=== PATIENT | female | born 1955 | race American Indian/Alaskan Native ===

== ENCOUNTER 2017-05-11 09:18 | Outpatient (CLI) | payer BC ==
--- NOTE | 2017-05-11 16:56 | Vascular Lab Report ---
MESENTERIC ARTERIAL DUPLEX Reason for exam: Mesenteric artery insufficiency Comments: The aorta is patent. Flow velocities are within normal limits. Minimal atherosclerotic change is identified. No aneurysmal dilatation is noted. The celiac artery is patent. Flow velocities are normal. No evidence of obstruction is identified. The superior mesenteric artery is patent. Flow velocities are normal. No evidence of obstruction is identified. A caloric challenge was given. The patient did not complain of pain during the period of observation afterword. The superior mesenteric artery was interrogated for approximately 20 minutes after the meal. Appropriate changes in flow velocities were observed. Impression: This study does not support the diagnosis of mesenteric ischemia.
== END 2017-05-11 09:19 | disposition home or self-care (01) ==
LOC: VAS 09:18
PROVIDERS: ATTEND Surgery Vascular Surgery
DX: R10.10 Upper abdominal pain, unspecified (principal)
CPT/HCPCS: 93979

== ENCOUNTER 2017-07-20 07:03 | Day surgery (SDC) | payer BC ==
[2017-07-20] MEDS ORDERED: ECOTRIN PO ONE (07:36)
[2017-07-20 08:00] LABS: Basophils % (Auto) 2.1 % (0.0-1.8); Eosinophils % (Auto) 2.5 % (0.0-4.3); Hematocrit 36.5 % (30.3-42.9); Hemoglobin 11.6 gm/dl (10.1-14.3); Mean Corpuscular HGB Conc 32 % (30-34); Mean Corpuscular Hemoglobin 28 pg (28-32); Mean Corpuscular Volume 87 fl (79-97); Platelet Count 285 K/mm3 (140-440); Red Blood Count 4.18 M/mm3 (3.65-5.03); Red Cell Distribution Width 14.1 % (13.2-15.2); White Blood Count 4.5 K/mm3 (4.5-11.0)
[2017-07-20] MEDS ORDERED: NACL 0.9% 500 ML 500 ML IV SCH (08:00)
[2017-07-20 08:13] LABS: INR 0.96 (0.87-1.13)
[2017-07-20 08:18] LABS: Anion Gap 13 mmol/L; BUN/Creatinine Ratio 22; Blood Urea Nitrogen 20 mg/dL (7-17); Calcium 9.6 mg/dL (8.4-10.2); Carbon Dioxide 29 mmol/L (22-30); Chloride 103.8 mmol/L (98-107); Glucose 106 mg/dL (65-100); Potassium 3.9 mmol/L (3.6-5.0); Sodium 142 mmol/L (137-145)
[2017-07-20] MEDS ORDERED: HEPARIN/NS 5000 UNIT/500ML(CATH LAB) 1,000 ML IR ONE (09:26)
[2017-07-20] MEDS ORDERED: NITROGLYCERIN SYRINGE 3 ML ONE (09:27)
[2017-07-20] MEDS ORDERED: XYLOCAINE 2% INFILTRATI ONE (09:27)
[2017-07-20] MEDS ORDERED: CALAN ONE (09:27)
[2017-07-20] MEDS ORDERED: HEPARIN 10,000 UNITS/10 ML ONE (09:27)
[2017-07-20] MEDS ORDERED: VERSED ONE (09:28)
[2017-07-20] MEDS ORDERED: SUBLIMAZE ONE (09:28)
--- NOTE | 2017-07-20 10:30 | Cardiac Catherization Report ---
CARDIAC CATHETERIZATION REFERRING PHYSICIANS: 1. Jose Snow MD 2. Harshal Sharma MD INDICATION FOR PROCEDURE: The patient is a pleasant 62-year-old -British female with multiple risk factors, who presents with chest pain and abnormal stress test, referred for left heart catheterization. Risks, benefits, and alternatives discussed at length prior to obtaining informed consent. PROCEDURE IN DETAIL: The patient was brought to the bed laborer in a postabsorptive state, prepped and draped in sterile fashion. Dat's test in right hand was normal. A 2 mL of 2% lidocaine used to anesthetize the right wrist. A standard 6-Azeri hydrophilic sheath used to cannulate the right radial artery via modified Seldinger technique. All exchanges performed to exchange a J-tip guidewire. JL3.5 catheter used to engage the left main. No dampening or ventricularization. Cineangiography performed in multiple projections. JR4 catheter used to cross the aortic valve under fluoroscopic guidance. Left ventriculography performed in 30 CARRILLO and 30 LITTLE projections via hand injections, catheter flushed. Manual pullback performed with continuous pressure monitoring. Catheter used to engage the right coronary. No dampening or ventricularization. Cineangiography performed in all projections. Next, given recurrent chest pain and unremarkable coronaries, we proceeded with root aortography with a power injector in the LITTLE projection with a pigtail catheter. Catheter removed from the body of wire, sheath removed, manual pressure used to achieve hemostasis. DATA: Aortic pressure is 120/60, LV pressure is 120, LVEDP of 20 mmHg. Left ventriculography revealed normal left ventricular systolic performance, estimated ejection fraction of 55-60%. No evidence of aortic stenosis. CORONARY ANATOMY: This is a right dominant system. Right coronary is a moderate sized vessel, courses AV groove, distally bifurcates in the posterior descending and posterolateral branch. There are scattered luminal irregularities with a maximal narrowing of 20% in the mid right coronary. Left main without significant disease, bifurcates into left anterior descending and left circumflex. Left circumflex is a moderate sized vessel, courses AV groove. No significant disease. LAD is a moderate sized vessel, courses anterior intergroove, wraps around the apex, no significant disease identified. Root aortography reveals normal contour, normal great vessel anatomy, no evidence of a dissection or penetrating aortic ulcer, no evidence of aortic insufficiency. CONCLUSIONS: 1. Mild nonobstructive coronary artery disease with a 20% mid right coronary stenosis. 2. Right dominant system. 3. Normal left ventricular systolic performance, estimated ejection fraction of 55-60%. 4. Normal root aortography without evidence of dissection or penetrating aortic ulcer. Continue aggressive risk factor modification, diet and lifestyle modification. Follow up with Dr. Sharma in the office. Results of procedure explained in length to the patient and family. All questions and concerns were addressed. JOB# [id number] SBMadelyn/NTS
[2017-07-20 13:33] VITALS: BP 137/59
--- NOTE | 2017-07-20 14:56 | Short Stay Summary ---
Short Stay Documentation Date of service: 07/20/17 - History H&P: obtained from office - Allergies and Medications Current Medications: Allergies No Known Allergies Allergy (Verified 07/20/17 07:36) Home Medications Medication Instructions Recorded Confirmed Last Taken Type Metoprolol [Lopressor] 100 mg PO DAILY 07/20/17 07/20/17 07/19/17 History Triamter/Hctz 37.5-25 mg 1 tab PO QDAY 07/20/17 07/20/17 07/19/17 History [Maxzide-25] lamoTRIgine [lamoTRIgine ER] 25 mg PO BID 07/20/17 07/20/17 07/19/17 History - Brief post op/procedure progress note Date of procedure: 07/20/17 Pre-op diagnosis: abnormal stress test Post-op diagnosis: other (CAD) Procedure: [facility] - see cath report Anesthesia: local Estimated blood loss: none Condition: stable - Disposition Condition at discharge: Stable Disposition: DC-01 TO HOME OR SELFCARE - Discharge Diagnoses (1) CAD (coronary artery disease) Status: Chronic Qualifiers: Coronary Disease-Associated Artery/Lesion type: C [place] vs. transplanted heart: N Associated angina: A Short Stay Discharge Plan Activity: advance as tolerated Diet: low fat, low cholesterol, low salt Wound: open to air, keep clean and dry, per your surgeon's advice Additional Instructions: Make follow up appointment with in 7days [phone] Follow up with: ANGEL SOTO MD [Primary Care Provider] - 7 Days Forms: CardCath PCI D/C Instructions, Post Sedation D/C Instructions
== END 2017-07-20 14:25 | disposition home or self-care (01) ==
LOC: CATHLABREC 07:03
PROVIDERS: ATTEND Internal Medicine
DX: I25.10 Atherosclerotic heart disease of native coronary artery without angina pectoris (principal); Z79.01 Long term (current) use of anticoagulants
CPT/HCPCS: 36415; 80048; 85025; 85610; 85730; 93005; 93010; 93458; 93567; C1894; J1644; J2250; J3010; J7040; Q9967

== ENCOUNTER 2017-10-11 11:00 | Outpatient (CLI) | payer BC | END 2017-10-11 11:01 | disposition home or self-care (01) | LOC: SLR 11:00 | PROVIDERS: ATTEND Internal Medicine | DX: G47.30 Sleep apnea, unspecified (principal); E66.9 Obesity, unspecified; I10 Essential (primary) hypertension; I25.10 Atherosclerotic heart disease of native coronary artery without angina pectoris; Z87.891 Personal history of nicotine dependence | CPT/HCPCS: 95810 ==

== ENCOUNTER 2018-05-10 09:39 | Day surgery (SDC) | payer MEDICARE ==
[~2018-05-10 09:39] MED LIST: TETRACAINE 0.5% OS PRN
[2018-05-10] MEDS: VIGAMOX OS SCH ×3 (10:30→10:40)
[2018-05-10] MEDS: MYDRIACYL OS SCH ×3 (10:30→10:40)
[2018-05-10] MEDS: AK-Dilate OS SCH ×3 (10:30→10:40)
--- NOTE | 2018-05-10 10:41 | Anesthesia Consultation ---
Anesthesia Consult and Med Hx Date of service: 05/10/18 - Airway Anesthetic Teeth Evaluation: Partials ROM Head & Neck: Adequate Mental/Hyoid Distance: Adequate Mallampati Class: Class I Intubation Access Assessment: Good - Pulmonary Exam CTA: Yes - Pre-Operative Health Status ASA Pre-Surgery Classification: ASA3 Proposed Anesthetic Plan: Local, MAC - Pulmonary Hx Smoking: Yes (QUIT 1992) Hx Asthma: Yes ( A CHILD) Hx Sleep Apnea: Yes - Cardiovascular System Hx Hypertension: Yes (2005) Hx Coronary Artery Disease: Yes (takes isosorbide) Hx Heart Attack/AMI: No - Central Nervous System Hx Psychiatric Problems: No - Other Systems Hx Cancer: No
[2018-05-10] MEDS ORDERED: NACL BACTERIOSTATIC INFILTRATI ONE (10:52)
[2018-05-10] MEDS ORDERED: VERSED ONE (11:09)
[2018-05-10] MEDS ORDERED: DIAMOX PO ONE (12:14)
[2018-05-10] MEDS ORDERED: PRED FORTE 1% OS SCH (12:15)
[2018-05-10] MEDS ORDERED: PRED FORTE 1% ONE (12:21)
--- NOTE | 2018-05-10 13:10 | Operative Report ---
Operative Report Operative Report: PATIENT'S NAME: DATE OF : DATE OF SURGERY: 05/10/2008 PREOPERATIVE DIAGNOSIS: Cataract left eye POSTOPERATIVE DIAGNOSIS: Same OPERATIVE PROCEDURE: Phacoemulsification with intraocular lens implantation, left eye SURGEON: Thalia Diop M.D. ASSEMBLER [employer] SURGEON: Kuldeep Lens: [id number] 19.0 D ANESTHESIA: Monitored anesthesia care in combination with topical and intracameral anesthesia because of the established specific risk of reflux, arrhythmias, or anxiety attacks associated with ocular manipulation, as well as the difficulty of the cover stitch machine operator to manage such potentially catastrophic events while simultaneously attempting to complete the surgical procedure and was deemed necessary for the patient's safety to have an Disbursing Agent present during the procedure whenever possible. An Disbursing Agent was utilized to regulate the intravenous sedation of the patient so the patient was cooperative yet not asleep in order for the patient to successfully maintain fixation of the eye on the operating light of the microscope. COMPLICATIONS: No surgical complications No blood loss. ALLERGIES: N known drug allergies PROGNOSIS: Excellent INDICATIONS FOR SURGERY: The patient is undergoing surgery in the hopes of eliminating or improving these visual difficulties. PROCEDURE: After arriving at the surgery center, the patient was given topical anesthetic and dilating drops, as noted in the record. The patient was then taken into the operating room and given more anesthetic drops. The eyelids , lashes, and lid margins were scrubbed with Betadine solution, and the patient was draped. The Nurse Disbursing Agent administered IV sedation and monitored the patient during the procedure. The eye was then fixated with a 0.12, and a stab incision was made in the peripheral clear cornea into the anterior chamber. This was made on my left side. Viscoelastic was next used to fill the anterior chamber. The eye was once again fixated with the 0.12 forceps and a keratome was used make an incision in clear cornea peripherally on my right hand side temporally. The capsule forceps were used to open the central anterior capsule and then make a continuous round capsulotomy. Hydrodissection was carried out utilizing a cannula and balanced salt solution to delineate the cortical material from the capsule and the nucleus from the cortical material. The phaco tip was introduced into the eye and used to remove the anterior cortical material in the area of the capsulotomy. Then the phaco tip was buried into the nucleus, and a chopping instrument was introduced into the eye and used to provide countertraction in the nucleus between this instrument and the phaco tip fracturing the nucleus. This procedure was repeated multiple times, providing multiple small segments of the lens, and then the phaco tip was used to remove each of these segments. An I/A tip was then used to remove the remaining cortex. The anterior chamber was refilled with viscoelastic. An one-piece, acrylic intraocular lens was then placed into an inserting cartridge. The tip of the inserting cartridge was introduced into the keratome incision and into the anterior chamber. The implant was gently advanced through the cartridge and into the eye, where it unfolded, and both haptics were placed in the capsular bag, where it centered nicely and appeared to be well fixated. After placement of the intraocular lens, the I~and~A handpiece was placed back into the eye and used to remove the viscoelastic, including viscoelastic that was behind the optic of the intraocular lens. The anterior chamber was then filled with balanced salt solution, and hydration of the wound was used to cause swelling of the wound and more appropriate watertight closure. When the wound was found to be firm, the patient was asked to comment on how bright the light was. If there was no light perception at all or if the light was substantially dimmer than during the rest of the surgery, the amount of fluid in the eye was decompressed to lower the intraocular pressure until the patient could see the bright light again. This was done to avoid any damage or decreased blood flow to the optic nerve. AT 10-0 NYLON WAS PLACED IN anticipation of retinal surgery. MEDICATIONS APPLIED AT END OF SURGERY: One drop of Pred Forte and Vigamox The patient was given a shield to wear at night and was instructed not to rub or push on the eye. DISCHARGE SUMMARY: The patient was released in stable condition. The patient and those with the patient were given a written sheet of postoperative instructions and counseling on any abnormal laboratory studies. The patient is to see us tomorrow for follow-up in the office and is to call immediately for any difficulties. Thalia Diop M.D. Date
--- NOTE | 2018-05-10 13:11 | Short Stay Summary ---
Short Stay Documentation Date of service: 05/10/18 - History H&P: obtained from office - Allergies and Medications Current Medications: Allergies No Known Allergies Allergy (Verified 05/08/18 10:57) Home Medications Medication Instructions Recorded Confirmed Last Taken Type Metoprolol [Lopressor] 100 mg PO DAILY 07/20/17 05/08/18 05/10/18 07:00 History Triamter/Hctz 37.5-25 mg 1 tab PO QDAY 07/20/17 05/08/18 05/10/18 07:00 History [Maxzide-25] lamoTRIgine [lamoTRIgine ER] 25 mg PO BID 07/20/17 05/08/18 05/09/18 History ISOSORBIDE MONOnitrate [Imdur ER] 30 mg PO DAILY 05/08/18 05/08/18 05/09/18 History Active Medications Moxifloxacin HCl (Vigamox) 1 drops OS Q5MIN [facility] Stop: 05/12/18 06:01 Last Admin: 05/10/18 10:40 Dose: 1 drops Phenylephrine HCl (Ak-Dilate) 1 drops OS Q5MIN [facility] Stop: 05/12/18 06:01 Last Admin: 05/10/18 10:40 Dose: 1 drops Prednisolone Acetate (Pred Forte 1%) 1 drops OS QID [facility] Stop: 05/10/18 22:00 Last Admin: 05/10/18 12:28 Dose: 1 drops Tetracaine HCl (Tetracaine 0.5%) 1 drops OS Q5M PRN PRN Reason: Anesthesia Last Admin: 05/10/18 10:30 Dose: 1 drops Tropicamide (Mydriacyl) 1 drops OS Q5MIN [facility] Stop: 05/12/18 06:01 Last Admin: 05/10/18 10:40 Dose: 1 drops - Brief post op/procedure progress note Date of procedure: 05/10/18 Pre-op diagnosis: left cataract Post-op diagnosis: same Procedure: Phacoemulsification with intraocular lens insertion left eye Anesthesia: MAC, local Surgeon: LEO HOFFMANN Estimated blood loss: none Pathology: none Condition: stable - Disposition Condition at discharge: Good Disposition: DC-01 TO HOME OR SELFCARE - Discharge Diagnoses (1) Nuclear sclerosis of left eye Status: Resolved Short Stay Discharge Plan Additional Instructions: FOLLOW SURGEON INSTRUCTION SHEETS. Follow up with: ANGEL SOTO MD [Primary Care Provider] - 7 Days Forms: Outpatient Surgery DC Inst.
[2018-05-10 13:47] VITALS: BP 129/70
== END 2018-05-10 13:00 | disposition home or self-care (01) ==
LOC: OR 09:39
DX: E11.36 Type 2 diabetes mellitus with diabetic cataract (principal); H25.12 Age-related nuclear cataract, left eye; E11.42 Type 2 diabetes mellitus with diabetic polyneuropathy; I25.10 Atherosclerotic heart disease of native coronary artery without angina pectoris; I10 Essential (primary) hypertension; J45.909 Unspecified asthma, uncomplicated; G47.30 Sleep apnea, unspecified; M19.90 Unspecified osteoarthritis, unspecified site; Z98.51 Tubal ligation status; Z90.710 Acquired absence of both cervix and uterus; Z87.891 Personal history of nicotine dependence; Z99.89 Dependence on other enabling machines and devices; Z98.890 Other specified postprocedural states; Z80.0 Family history of malignant neoplasm of digestive organs
CPT/HCPCS: 66984; J2250; V2632